=== PATIENT | male | born 1995 | race Caucasian/White ===

== ENCOUNTER 2022-07-13 07:43 | Day surgery (SDC) | payer OTHER ==
[~2022-07-13] VITALS: Ht 167.6 cm; Wt 72.7 kg
[~2022-07-13 07:43] MED LIST: IBUPROFEN800 MG PO
--- NOTE | 2022-07-13 12:03 | NUR ---
07/13/22 1203 Vilma Betancourt 1200 PATIENT ARRIVES TO PACU RESTING WITH EYES CLOSED. RESP EVEN AND UNLABORED, MASK AT 6 LITERS. PATIENT OPENS EYES WITH VERBAL STIMULI. BACK TO SLEEP WHEN NOT STIMULATED.
--- NOTE | 2022-07-13 13:35 | NUR ---
STEADY ON FEET WITH ONE PERSON STAND BY ASSIST. DENIES NAUSEA. REPORTS MOUTH NUMBNESS. PT IS GETTING DRESSED SITTING DOWN. PROVIDED PT WITH NEW CLOTH FOR OOZY BLOOD DISCHARGE FROM MOUTH. 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
== END 2022-07-13 14:00 | disposition home or self-care (01) ==
LOC: DS 07:43 → OPS 07:43 → DS 09:00 → OPS 09:00
PROVIDERS: ATTEND Dentist General Practice
PROC: 0CDWXZ0 Extraction of Upper Tooth, Single, External Approach (ICD-10-PCS; 2022-07-13)
PROC: 0CDXXZ0 Extraction of Lower Tooth, Single, External Approach (ICD-10-PCS; principal; 2022-07-13 09:00)
DX: K02.9 Dental caries, unspecified (principal); K05.6 Periodontal disease, unspecified; F17.200 Nicotine dependence, unspecified, uncomplicated
CPT/HCPCS: J0131; J1100; J2001; J2250; J2405; J2704; J3010; J7121